=== PATIENT | female | born 1975 ===

== ENCOUNTER 2023-07-12 06:30 | Day surgery (SDC) | payer OTHER ==
[2023-07-11 10:50] LABS: HEMATOCRIT 33.9 % (36.0-45.00); HEMOGLOBIN 11.4 g/dL (12.0-15.00); MEAN CELL VOLUME 84.2 fL (80.00-100.00); MEAN CORPUSCULAR HEMOGLOBIN 28.4 pg (27.00-32.0); MEAN CORPUSCULAR HGB CONC 33.8 g/dl (32.0-36.0); PLATELET COUNT 249 K/uL (150-450); RED BLOOD COUNT 4.02 M/uL (4.00-6.00); RED CELL DISTRIBUTION WIDTH 15.1 % (11.5-14.5)
[~2023-07-12] VITALS: Ht 157.5 cm; Wt 85.7 kg
[~2023-07-12 06:30] MED LIST: ATIVAN1 M1 PO; CALCITRIOL0.5 MCG PO; COZAAR100 MG PO; RESTORIL30 M1 PO; SEROQUEL25 MG PO; SYNTHROID200 MCG PO; TOPROL XL50 M1 PO; ZOLOFT100 MG PO
== END 2023-07-12 18:55 | disposition home or self-care (01) ==
LOC: CIR.AMB 06:30
PROVIDERS: ATTEND Orthopaedic Surgery Hand Surgery
DX: S52.202A Unspecified fracture of shaft of left ulna, initial encounter for closed fracture (principal); E11.9 Type 2 diabetes mellitus without complications; E78.00 Pure hypercholesterolemia, unspecified; Z20.822 Contact with and (suspected) exposure to COVID-19; I10 Essential (primary) hypertension; E03.9 Hypothyroidism, unspecified
CPT/HCPCS: 25545; L8699